=== PATIENT | female | born 1995 | race Caucasian/White ===

== ENCOUNTER 2020-03-07 04:00 | Inpatient (IN) ==
[2020-03-07] MEDS ORDERED: Naloxone 0.4 MG/ML INJ IVP PRN (04:32)
[2020-03-07] MEDS ORDERED: Famotidine 20 MG/2 ML VIAL IVP PRN (04:32)
[2020-03-07] MEDS ORDERED: Metoclopramide 10 MG/2 ML VIAL IVP PRN (04:32)
[2020-03-07] MEDS ORDERED: *HR* FentaNYL (PF) 100 MCG/2 ML VIAL IVP PRN (04:32)
[2020-03-07] MEDS ORDERED: Lidocaine 1% 20 ML MDV INFILT PRN (04:32)
[2020-03-07] MEDS ORDERED: miSOPROStoL 25 MCG TABLET VG PRN (04:32)
[2020-03-07] MEDS ORDERED: Ondansetron 4 MG/2 ML VIAL IVP PRN (04:32)
[2020-03-07] MEDS ORDERED: Ringers Solution, Lactated 1,000 ML IVC SCH (04:45)
[2020-03-07] MEDS ORDERED: EPHEDrine 50 MG/ML VIAL IVP PRN ×2 (04:56→08:03)
[2020-03-07 05:07] LABS: Basophils % 0.1 %; Eosinophils % 0.4 %; Hematocrit 37.2 % (35.3-44.9); Hemoglobin 12.1 g/dL (11.5-15.4); Immature Granulocytes % 0.4 % (0-4); Lymphocytes # 1.7 K/mcL (0.6-4.6); Lymphocytes % 23.6 %; Mean Corpuscular HGB Conc 32.5 g/dL (31.6-35.5); Mean Corpuscular Hemoglobin 27.4 pg (28.0-33.3); Mean Corpuscular Volume 84.4 fL (83.0-100.0); Mean Platelet Volume 9.6 fL (9.4-12.4); Monocytes # 0.8 K/mcL (0.0-1.3); Monocytes % 10.3 %; Neutrophils # 4.8 K/mcL (1.6-8.9); Platelet Count 202 K/mcL (140-400); Red Blood Count 4.41 M/mcL (3.82-4.97); Red Cell Distribution Width 13.6 % (11.5-14.5); Segmented Neutrophils % 65.2 %; White Blood Count 7.4 K/mcL (4.3-11.1)
[2020-03-07 05:16] LABS: Amphetamine Screen,Urine Negative ng/mL (Cutoff=1000); Barbiturate Screen,Urine Negative ng/mL (Cutoff=200); Benzodiazepines Screen,Urine Negative ng/mL (Cutoff=200); Cannabinoid Screen,Urine Negative ng/mL (Cutoff = 50); Cocaine Screen,Urine Negative ng/mL (Cutoff= 300); Opiate Screen,Urine Negative ng/mL (Cutoff=300); Phencyclidine Screen,Urine Negative ng/mL (Cutoff=25)
[2020-03-07] MEDS ORDERED: Ropivacaine/PF 0.2% 20 ML VIAL EP ONE (08:03)
[2020-03-07] MEDS: Epidural Premix (fent/bupiv) 110 ML EP SCH ×2 (09:18→15:51)
[2020-03-07] MEDS ORDERED: Oxytocin 20 units/ LR 1000 mL 20 UNIT/1,000 ML BAG IVC SCH ×2 (13:15→20:52)
[2020-03-07] MEDS ORDERED: Measles/Mumps/Rubella Vacc 0.5 ML VIAL SQ PRN (20:52)
[2020-03-07] MEDS ORDERED: Benzocaine/Menthol 56 GM AEROSOL SPRAY TP PRN (20:52)
[2020-03-07] MEDS ORDERED: Lanolin 7 G OINT...G. TP PRN (20:52)
[2020-03-07] MEDS: Acetaminophen 325 MG TABLET PO PRN (21:21)
[2020-03-07] MEDS: Ibuprofen 600 MG TABLET PO PRN (21:22)
[2020-03-08] MEDS: Ibuprofen 600 MG TABLET PO PRN ×2 (05:26→15:30)
[2020-03-08] MEDS: Acetaminophen 325 MG TABLET PO PRN (05:26)
[2020-03-08 05:44] LABS: Basophils % 0.1 %; Eosinophils % 0.2 %; Hemoglobin 10.7 g/dL (11.5-15.4); Immature Granulocytes % 0.3 % (0-4); Lymphocytes # 1.2 K/mcL (0.6-4.6); Lymphocytes % 11.3 %; Mean Corpuscular HGB Conc 32.4 g/dL (31.6-35.5); Mean Corpuscular Hemoglobin 27.6 pg (28.0-33.3); Mean Corpuscular Volume 85.1 fL (83.0-100.0); Mean Platelet Volume 9.5 fL (9.4-12.4); Monocytes # 0.7 K/mcL (0.0-1.3); Monocytes % 7.2 %; Neutrophils # 8.3 K/mcL (1.6-8.9); Platelet Count 168 K/mcL (140-400); Red Blood Count 3.88 M/mcL (3.82-4.97); Red Cell Distribution Width 13.8 % (11.5-14.5); Segmented Neutrophils % 80.9 %; White Blood Count 10.3 K/mcL (4.3-11.1)
[2020-03-08] MEDS ORDERED: Prenatal Vit/FA 1 EACH TABLET PO SCH (09:00)
[2020-03-08 17:43] VITALS: BP 127/62
== END 2020-03-08 19:10 | disposition home or self-care (01) | DRG 805 ==
LOC: 1NENULAB 04:31 → 1NENUOBS 20:47
PROVIDERS: ADMIT Obstetrics & Gynecology; ATTEND Obstetrics & Gynecology

== ENCOUNTER 2022-01-08 00:54 | Inpatient (IN) ==
[2022-01-08] MEDS ORDERED: *HR* Nalbuphine 10 MG/ML AMPUL IV PRN (01:13)
[2022-01-08] MEDS ORDERED: Ondansetron 4 MG/2 ML VIAL IVP PRN (01:13)
[2022-01-08] MEDS ORDERED: Naloxone 0.4 MG/ML INJ IVP PRN (01:13)
[2022-01-08] MEDS ORDERED: Metoclopramide 10 MG/2 ML VIAL IVP PRN (01:13)
[2022-01-08] MEDS ORDERED: Famotidine 20 MG/2 ML VIAL IVP PRN (01:13)
[2022-01-08] MEDS ORDERED: Ringers Solution, Lactated 1,000 ML IVC SCH (01:15)
[2022-01-08 01:42] LABS: Basophils % 0.1 %; Eosinophils % 0.4 %; Hematocrit 38.4 % (35.3-44.9); Hemoglobin 13.2 g/dL (11.5-15.4); Immature Granulocytes % 0.4 % (0-4); Lymphocytes # 1.6 K/mcL (0.6-4.6); Lymphocytes % 24.3 %; Mean Corpuscular HGB Conc 34.4 g/dL (31.6-35.5); Mean Corpuscular Hemoglobin 29.5 pg (28.0-33.3); Mean Corpuscular Volume 85.9 fL (83.0-100.0); Mean Platelet Volume 9.8 fL (9.4-12.4); Monocytes # 0.8 K/mcL (0.0-1.3); Monocytes % 11.8 %; Neutrophils # 4.2 K/mcL (1.6-8.9); Platelet Count 182 K/mcL (140-400); Red Blood Count 4.47 M/mcL (3.82-4.97); Red Cell Distribution Width 13.3 % (11.5-14.5); White Blood Count 6.7 K/mcL (4.3-11.1)
[2022-01-08 01:43] LABS: Amphetamine Screen,Urine Negative ng/mL (Cutoff=1000); Barbiturate Screen,Urine Negative ng/mL (Cutoff=200); Benzodiazepines Screen,Urine Negative ng/mL (Cutoff=200); Cannabinoid Screen,Urine Negative ng/mL (Cutoff = 50); Cocaine Screen,Urine Negative ng/mL (Cutoff= 300); Opiate Screen,Urine Negative ng/mL (Cutoff=300); Phencyclidine Screen,Urine Negative ng/mL (Cutoff=25)
[2022-01-08] MEDS ORDERED: *HR* FentaNYL (PF) 100 MCG/2 ML VIAL EP ONE (02:04)
[2022-01-08] MEDS ORDERED: EPHEDrine 50 MG/ML VIAL IVP PRN (02:04)
[2022-01-08] MEDS ORDERED: Ropivacaine/PF 0.2% 20 ML VIAL EP ONE (02:04)
[2022-01-08] MEDS ORDERED: Epidural Premix (fent/bupiv) 110 ML EP ONE (02:08)
[2022-01-08] MEDS ORDERED: Epidural Premix (fent/bupiv) 110 ML EP SCH (02:15)
[2022-01-08] MEDS ORDERED: Oxytocin 20 units/ LR 1000 mL 20 UNIT/1,000 ML BAG IVC ONE (04:31)
[2022-01-08] MEDS ORDERED: Oxytocin 20 units/ LR 1000 mL 20 UNIT/1,000 ML BAG IVC SCH (06:44)
[2022-01-08] MEDS ORDERED: Acetaminophen 325 MG TABLET PO SCH (06:44)
[2022-01-08] MEDS ORDERED: Lanolin 7 G OINT...G. TP PRN (06:44)
[2022-01-08] MEDS ORDERED: Benzocaine/Menthol 56 GM AEROSOL SPRAY TP PRN (06:44)
[2022-01-08] MEDS ORDERED: Ondansetron ODT 4 MG TAB.RAPDIS SL PRN (06:44)
[2022-01-08] MEDS ORDERED: Ibuprofen 600 MG TABLET PO SCH (08:31)
[2022-01-08] MEDS ORDERED: Prenatal Vit/FA 1 EACH TABLET PO SCH (09:00)
[2022-01-09 06:33] VITALS: BP 115/77; PULSE 68; TEMP 98.2; O2SAT 97
== END 2022-01-09 13:13 | disposition home or self-care (01) | DRG 807 ==
LOC: 1NENULAB → 1NENUOBS 08:13
PROVIDERS: ADMIT Advanced Practice Midwife; ATTEND Advanced Practice Midwife